=== PATIENT | female | born 1960 ===

== ENCOUNTER 2021-04-17 06:59 | Day surgery (SDC) | payer OTHER ==
[2021-04-17] MEDS ORDERED: POLY119PG PO (09:40)
[2021-04-17] MEDS ORDERED: SURFAK240 M1 PO (09:40)
[2021-04-17] MEDS ORDERED: PERCOCET 5-3251 EACH PO (09:40)
[2021-04-17] MEDS ORDERED: PEPCID20 MG PO (09:41)
== END 2021-04-17 17:40 | disposition home or self-care (01) ==
LOC: CIR.AMB 06:59
PROVIDERS: ATTEND Surgery
DX: K80.10 Calculus of gallbladder with chronic cholecystitis without obstruction (principal); K91.72 Accidental puncture and laceration of a digestive system organ or structure during other procedure; Z20.822 Contact with and (suspected) exposure to COVID-19

== ENCOUNTER 2021-05-15 19:01 | Emergency (ER) | payer OTHER ==
[~2021-05-15] VITALS: Ht 165.1 cm; Wt 72.6 kg
[~2021-05-15 19:01] MED LIST: PEPCID20 MG PO; PERCOCET 5-3251 EACH PO; POLY119PG PO; SURFAK240 M1 PO
[2021-05-15] MEDS ORDERED: AMOX-CLAV 875-1 EACH PO (23:25)
== END 2021-05-16 00:34 | disposition home or self-care (01) ==
LOC: ER 19:01
DX: T81.89XA Other complications of procedures, not elsewhere classified, initial encounter (principal); L03.90 Cellulitis, unspecified; Z98.890 Other specified postprocedural states
CPT/HCPCS: 74177; Q9965